=== PATIENT | female | born 1950 | race Caucasian/White ===

== ENCOUNTER 2017-12-31 | Inpatient (IN) | payer MEDICARE, OTHER ==
[~2017-12-31] VITALS: Ht 158.8 cm; Wt 85.7 kg
[2018-01-01] VITALS (34 sets, daily range): BP systolic 111–137; BP diastolic 64–94
[2018-01-01] MEDS ORDERED: NS IV 1000 ML 1,000 ML IV SCH (01:00)
[2018-01-01] MEDS: DILTIAZEM IV FOR DRIP 125 MG in NS (IVPB) 100 ML IV SCH ×2 (01:30→11:26)
[2018-01-01 03:33] LABS: BASOPHILS % (AUTO) 0 % (0-10); EOSINOPHILS # (AUTO) 0.2 10^3/uL (0.0-0.3); EOSINOPHILS % (AUTO) 1 % (0-10); HEMATOCRIT 41 % (35-52); HEMOGLOBIN 13.9 G/DL (11.5-16.0); LYMPHOCYTES # (AUTO) 1.2 X 10^3 (1.0-4.0); LYMPHOCYTES % (AUTO) 12 % (12-44); MEAN CORPUSCULAR HEMOGLOBIN 29 PG (25-34); MEAN CORPUSCULAR HGB CONC 34 G/DL (32-36); MEAN CORPUSCULAR VOLUME 86 FL (80-99); MEAN PLATELET VOLUME 10.3 FL (7.4-10.4); MONOCYTES # (AUTO) 0.7 X 10^3 (0.0-1.0); MONOCYTES % (AUTO) 7 % (0-12); NEUTROPHILS # (AUTO) 8.3 X 10^3 (1.8-7.8); NEUTROPHILS % (AUTO) 80 % (42-75); PLATELET COUNT 275 10^3/uL (130-400); RED BLOOD COUNT 4.79 10^6/uL (4.35-5.85); RED CELL DISTRIBUTION WIDTH 14.9 % (10.0-14.5); WHITE BLOOD COUNT 10.4 10^3/uL (4.3-11.0)
[2018-01-01 03:52] LABS: BUN/CREATININE RATIO 17; CALCIUM 8.9 MG/DL (8.5-10.1); CARBON DIOXIDE 17 MMOL/L (21-32); CHLORIDE 110 MMOL/L (98-107); CREATININE SERUM 0.78 MG/DL (0.60-1.30); GFR ESTIMATED > 60; GLUCOSE 185 MG/DL (70-105); MAGNESIUM 2.3 MG/DL (1.8-2.4); PHOSPHORUS 1.9 MG/DL (2.3-4.7); POTASSIUM 4.1 MMOL/L (3.6-5.0); SODIUM 138 MMOL/L (135-145)
[2018-01-01] MEDS ORDERED: KCL 20 MEQ TAB (K-DUR) PO SCH (06:00)
[2018-01-01] MEDS ORDERED: POTASSIUM CL 10MEQ/50ML IVPB 50 ML IV SCH (06:00)
[2018-01-01] MEDS ORDERED: MAGNESIUM 1 GM/100 ML IVPB 100 ML IV SCH (06:00)
[2018-01-01] MEDS ORDERED: FLU QUADRIvalent (5+ YOA) 2018-2019 (AFLURIA) 0.5 ML IM ONE (07:15)
[2018-01-01] MEDS ORDERED: APIXABAN 5 MG (ELIQUIS) TABLET PO SCH (10:15)
--- NOTE | 2018-01-01 12:58 | Consultation-Cardiology ---
HPI-Cardiology Cardiology Consultation: Date of Consultation 01/01/18 Date of Admission Attending Physician Ramsey Hendrix MD Admitting Physician Chepe Irwin MD Consulting Physician Flavia STERLING MD HPI: Time Seen by a Provider: 12:58 Chief Complaint: Palpitations This is a pleasant 67-year-old lady with no significant past medical history who presented with racing heart, near-syncope and palpitations to an outside ER. She was found to be in atrial fibrillation with rapid ventricular rate. She was transferred to our hospital overnight. I spoke to the ER nurse practitioner at the outside hospital and started the patient on Eliquis, Cardizem infusion, amiodarone infusion. The patient converted to sinus rhythm on amiodarone infusion. Subsequently amiodarone infusion was discontinued. 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 She denies any symptoms. She specifically denies chest pain, shortness of breath, palpitations, near- syncope, syncope. According to the patient this is her first episode. She denies diabetes, hypertension, previous cardiac history. She is not an active smoker. She denies any family history of premature CAD or heart rhythm disorders. She did have mild uterine bleeding 2 weeks ago for which she finished a course of progesterone. No further bleeding. Review of Systems-Cardiology Review of Systems Constitutional: As described under HPI; No As described under HPI, No no symptoms reported, No chills, No fever, No lightheadedness Eyes: No As described under HPI, No no symptoms reported, No blindness, No blurred vision, No contact lenses, No drainage, No decreased acuity, No foreign body sensation, No pain, No vision change Ears/Nose/Throat: No As described under HPI, No no symptoms reported, No chronic hearing loss, No ear discharge, No ear pain, No nasal drainage, No ulcerations Respiratory: No no symptoms reported; As described under HPI; No As described under HPI, No cough, No orthopnea, No shortness of breath, No SOB with excertion Cardiovascular: No no symptoms reported; As described under HPI; No As described under HPI, No chest pain, No edema; irregular heart rate; No lightheadedness; palpitations, syncope (near syncope.) Gastrointestinal: No no symptoms reported, No As described under HPI, No abdomen distended, No abdominal pain, No blood streaked bowels, No constipation , No diarrhea, No nausea, No vomiting, No stool coloration changes Genitourinary: No As described under HPI, No burning, No dysuria, No discharge , No frequency, No flank pain, No hematuria, No urgency : Yes : No Musculoskeletal: No no symptoms reported, No As describe under HPI, No back pain, No gout, No joint pain, No joint swelling, No muscle pain, No muscle stiffness, No neck pain, No other Skin: No no symptoms reported, No As described under HPI, No change in color, No change in hair/nails, No dryness, No lesions, No lumps, No rash, No other, No skin related problems, No ulcerations, No rash on exposed areas, No ulcerations on exposed areas Psychiatric/Neurological: No anxiety, No depression, No seizure, No focal weakness, No syncope Hematologic: No bleeding abnormalities HSI-Ovovrq-Ijffqh Hx Patient Social History Alcohol Use: Denies Use Recreational Drug Use: No Smoking Status: Former Smoker Type Used: Cigarettes Recent Foreign Travel: No Recent Infectious Disease Expo: No Hospitalization with Isolation: Denies Physical Abuse Screen: No Sexual Abuse: No Past Medical History PMH As described under Assessment. Family Medical History Family History: Arthritis 19 MOTHER, Onset:Unknown Cataracts 19 MOTHER, Onset:Unknown FH: Crohn's disease G8 BROTHER, Onset:Unknown FH: atrial fibrillation 19 FATHER, , Age:81, Onset:Unknown FH: blindness G8 BROTHER, Onset:60 years & older FH: colonic polyps G8 BROTHER, Onset:Unknown FH: coronary artery disease 19 MOTHER, Onset:Unknown FH: emphysema 19 FATHER, , Age:81, Onset:Unknown FH: scoliosis 19 MOTHER, Onset:Unknown Glaucoma G8 BROTHER, Onset:Unknown Hypertension G8 BROTHER, Onset:Unknown Allergies and Home Medications Allergies Coded Allergies: No Known Drug Allergies (Unverified , 01/01/18) Patient Home Medication List Home Medication List Reviewed: Yes Physical Exam-Cardiology Physical Exam Vital Signs/I&O 01/01/18 01/01/18 01/01/18 01/01/18 02:00 02:15 02:30 02:45 Temp 98.0 Pulse 87 82 87 83 Resp 12 12 11 15 B/P (MAP) 137/86 (103) 133/81 (98) 126/74 (91) 133/77 (95) Pulse Ox 96 97 96 94 O2 Delivery Room Air Room Air Room Air Room Air 01/01/18 01/01/18 01/01/18 01/01/18 03:00 03:15 03:30 03:45 Pulse 76 81 80 80 Resp 12 13 12 11 B/P (MAP) 130/70 (90) 122/69 (86) 127/72 (90) 122/70 (87) Pulse Ox 94 92 92 94 O2 Delivery Room Air Room Air Room Air Room Air 01/01/18 01/01/18 01/01/18 01/01/18 04:00 04:05 04:15 04:30 Pulse 81 82 75 Resp 13 11 11 B/P (MAP) 117/70 (86) 120/70 (87) 120/72 (88) Pulse Ox 91 96 96 96 O2 Delivery Room Air Room Air Room Air Room Air 01/01/18 01/01/18 01/01/18 01/01/18 04:45 05:00 05:15 05:30 Pulse 82 86 92 75 Resp 13 9 16 11 B/P (MAP) 121/73 (89) 121/78 (92) 114/70 (85) 117/72 (87) Pulse Ox 94 94 95 96 O2 Delivery Room Air Room Air Room Air Room Air 01/01/18 01/01/18 01/01/18 01/01/18 05:45 06:00 06:15 06:30 Pulse 73 75 77 82 Resp 12 12 13 13 B/P (MAP) 115/69 (84) 114/67 (83) 114/70 (85) 119/76 (90) Pulse Ox 94 92 93 95 O2 Delivery Room Air Room Air Room Air Room Air 01/01/18 01/01/18 01/01/18 01/01/18 06:45 07:00 07:00 08:00 Pulse 77 74 73 75 Resp 11 10 15 B/P (MAP) 115/69 (84) 120/68 (85) 111/69 (83) Pulse Ox 95 94 95 O2 Delivery Room Air Room Air Room Air 01/01/18 01/01/18 01/01/18 01/01/18 08:00 08:00 09:00 10:00 Temp 97.0 Pulse 78 69 Resp 15 11 B/P (MAP) 115/68 (84) 117/64 (81) Pulse Ox 95 93 96 O2 Delivery Room Air Room Air Room Air 01/01/18 01/01/18 01/01/18 01/01/18 11:00 11:26 12:00 12:00 Temp 97.8 98.1 Pulse 71 73 Resp 17 19 B/P (MAP) 126/69 (88) 125/68 Pulse Ox 96 96 95 O2 Delivery Room Air Room Air Room Air 01/01/18 01/01/18 12:00 13:00 Pulse 75 75 Resp 26 B/P (MAP) 125/72 (89) Pulse Ox 96 O2 Delivery Room Air Capillary Refill : Less Than 3 Seconds Constitutional: appears stated age, AAO x 3; No apparent distress; well- developed, well-nourished HEENT: PERRL; No normal ENT inspection, No TMs normal, No pharynx normal, No scleral icterus (R), No scleral icterus (L), No pale conjunctivae (R), No pale conjunctivae (L), No photophobia, No TM abnormal (R), No TM abnormal (L), No pharyngeal erythema, No tonsillar exudate, No other, No discharge, No EOMI; hearing is well preserved; No hard of hearing; oral hygience is good; No ulceration, No xanthelasmas are seen Neck: No non-tender, No full range of motion, No supple, No normal inspection, No carotid bruit, No limited range of motion, No lymphadenopathy (R), No lymphadenopathy (L), No tender lateral, No tender midline, No thyromegaly, No other; carotid pulses are 2 + bilaterally; No with good upstrokes Respiratory: No accessory muscle use, No respiratory distress, No chest tender , No chest expansion is symmetric; chest is bilaterally symmetric, lungs clear to percussion; No lungs clear to auscultation, No crackles, No rhonchi, No rales , No stridor, No wheezing, No pleural rub, No other Cardiovascular: regular rate-rhythm; No irregularly irregular, No extra beats, No parasternal heave is noted, No JVD, No edema, No bradycardia, No tachycardia , No point of maximal impulse, No cardiac thrills are palpable; S1 and S2; No gallop/S3, No gallop/S4, No diastolic murmur, No systolic murmur, No friction rub, No click, No other Gastrointestinal: No tender, No soft, No round, No distended, No pulsatile mass , No organomegaly, No guarding, No rebound, No tenderness, No hernia, No mass, No audible bowel sounds, No abnormal bowel sounds, No abdominal bruits, No spleenomegaly, No other Rectal: deferred Extremities: No normal range of motion, No non-tender, No normal inspection, No pedal edema, No calf tenderness, No normal capillary refill, No pelvis stable , No calf tenderness, No inflammation, No pedal edema, No slow capillary refill , No swelling, No other, No abrasion, No clubbing, No cyanosis, No ecchymosis, No laceration, No no lower extremity edema bilateral, No significant edema, No tenderness, No wound Neurologic/Psychiatric: no motor/sensory deficits, alert, normal mood/affect, oriented x 3, power is 5/5 both on sides Skin: No normal color, No warm/dry, No cyanosis, No cool, No diaphoresis, No damp, No ecchymosis, No jaundice, No mottled, No pallor, No rash, No tattoos/ piercings, No ulcerations, No rash on exposed areas, No ulcerations on exposed areas, No other Data Review Labs Laboratory Tests 01/01/18 02:15: White Blood Count 10.4, Red Blood Count 4.79, Hemoglobin 13.9, Hematocrit 41, Mean Corpuscular Volume 86, Mean Corpuscular Hemoglobin 29, Mean Corpuscular Hemoglobin Concent 34, Red Cell Distribution Width 14.9H, Platelet Count 275, Mean Platelet Volume 10.3, Neutrophils (%) (Auto) 80H, Lymphocytes (%) (Auto) 12 , Monocytes (%) (Auto) 7, Eosinophils (%) (Auto) 1, Basophils (%) (Auto) 0, Neutrophils # (Auto) 8.3H, Lymphocytes # (Auto) 1.2, Monocytes # (Auto) 0.7, Eosinophils # (Auto) 0.2, Basophils # (Auto) 0.0, Sodium Level 138, Potassium Level 4.1, Chloride Level 110H, Carbon Dioxide Level 17L, Anion Gap 11, Blood Urea Nitrogen 13, Creatinine 0.78, Estimat Glomerular Filtration Rate > 60, BUN/ Creatinine Ratio 17, Glucose Level 185H, Calcium Level 8.9, Phosphorus Level 1.9L, Magnesium Level 2.3 ECG Impression ECG Initial ECG Impression: Atrial Fibrillation w/RVR A/P-Cardiology Assessment/Admission Diagnosis Atrial fibrillation with rapid ventricular rate, Previous history of Uterine bleeding Plan First episode of atrial fibrillation. I discussed at length with the patient and family the pathophysiology of atrial fibrillation, rate controlled, rhythm control, stroke prevention, diagnostic modalities and future plan. Brief wide complex beats, likely atrial fibrillation with aberrancy. Echocardiogram shows normal LVEF. Metoprolol succinate 50 mg daily. Discontinue Cardizem infusion in a couple of hours. Start Eliquis 5 mg twice a day. Risk of bleeding discussed at length with the patient. Patient's CHADSVASC score is at least 2 for age and female gender. We'll schedule for outpatient sleep apnea testing and stress testing as an outpatient. I will follow-up in one to 2 weeks. Thank you for your consultation. Please call me if you have any questions. Kelvin Sterling MD, FACP, FACC, FSCAI, FHRS, CCDS Interventional Cardiology Cardiac Electrophysiology Vascular Medicine and Endovascular Interventions Clinical Quality Measures DVT/VTE Risk/Contraindication: Risk Factor Score Per Nursin RFS Level Per Nursing on Admit: 3=High Flavia STERLING MD Jan 01, 2018 12:58 pm
[2018-01-01] MEDS ORDERED: meTOproloL SUCCINATE 50 MG (TOPROL XL) TAB PO SCH (13:45)
--- NOTE | 2018-01-01 13:49 | History & Physical-Hospitalist ---
History of Present Illness HPI/Chief Complaint The patient is a 67-year-old white female who was referred to the hospitalist panel last night from the [place] emergency room. She had presented there with complaints of left-sided chest pain and palpitations. There was no previous history of heart disease or arrhythmias. Monitor strips showed atrial fibrillation with rapid ventricular response. She was okayed for transfer here. Indeed she was in atrial fibrillation with rapid ventricular response. Medications were managed by Dr. Sterling and she converted back to a sinus rhythm. An echocardiogram has been performed which showed normal pumping function and no evidence of valvular disease. He has therefore planned to discontinue her Cardizem drip and give an initial dose of metoprolol. The hope would be for discharge later this afternoon. Date Seen 01/01/18 Time Seen by a Provider: 13:44 Attending Physician Ramsey Irving MD PCP Chepe Irwin MD Referring Physician Date of Admission Jan 01, 2018 at 01:19 Home Medications & Allergies Home Medications Reviewed patient Home Medication Reconciliation performed by pharmacy medication reconciliations instrument technician helper and/or nursing. Patients Allergies have been reviewed. Allergies Allergies Coded Allergies No Known Drug Allergies (Vgaumtrlki80/7/18) Past Khctmnc-Unginc-Uoczpf Hx Past Med/Social Hx: Reviewed Nursing Past Med/Soc Hx Patient Social History Marrital Status: Alcohol Use: Denies Use Recreational Drug Use: No Smoking Status: Former Smoker Former Smoker, Quit: Sep 02, 1979 Type Used: Cigarettes Physical Abuse Screen: No Sexual Abuse: No Recent Foreign Travel: No Contact w/other who traveled: No Recent Hopitalizations: No Recent Infectious Disease Expo: No Immunizations Up To Date Pediatric: No Seasonal Allergies Seasonal Allergies: Yes Past Medical History Currently Using CPAP: No Currently Using BIPAP: No : No Genitourinary: UTI-Chronic HEENT: Glaucoma Loss of Vision: Denies Hearing Impairment: Denies Cancer: Skin History of Blood Disorders: No Adverse Reaction to Blood Yepez: No Family History Arthritis 19 MOTHER, Onset:Unknown Cataracts 19 MOTHER, Onset:Unknown FH: Crohn's disease G8 BROTHER, Onset:Unknown FH: atrial fibrillation 19 FATHER, , Age:81, Onset:Unknown FH: blindness G8 BROTHER, Onset:60 years & older FH: colonic polyps G8 BROTHER, Onset:Unknown FH: coronary artery disease 19 MOTHER, Onset:Unknown FH: emphysema 19 FATHER, , Age:81, Onset:Unknown FH: scoliosis 19 MOTHER, Onset:Unknown Glaucoma G8 BROTHER, Onset:Unknown Hypertension G8 BROTHER, Onset:Unknown Review of Systems Constitutional: see HPI EENTM: no symptoms reported Respiratory: no symptoms reported Cardiovascular: see HPI, chest pain, palpitations Gastrointestinal: no symptoms reported Genitourinary: no symptoms reported Musculoskeletal: no symptoms reported Skin: no symptoms reported Psychiatric/Neurological: No Symptoms Reported Physical Exam Physical Exam Vital Signs Vital Signs - First Documented 01/01/18 01/01/18 01:23 02:00 Temp 98.0 Pulse 96 Resp 33 B/P (MAP) 133/89 (104) Pulse Ox 96 O2 Delivery Room Air Capillary Refill : Less Than 3 Seconds Height, Weight, BMI Height: 5'2.50" Weight: 189lbs. 0.0oz. 85.454305cf; 34.0 BMI Method: General Appearance: No Apparent Distress, WD/WN, Other (considerable family in attendance) Eyes: Bilateral Eye Normal Inspection HEENT: Normal ENT Inspection Neck: Full Range of Motion, Normal Inspection, Non Tender, Supple, Carotid Bruit Respiratory: Chest Non Tender, Lungs Clear, Normal Breath Sounds, No Accessory Muscle Use, No Respiratory Distress Cardiovascular: Regular Rate, Rhythm, No Edema, No Gallop, No JVD, No Murmur, Normal Peripheral Pulses Gastrointestinal: Normal Bowel Sounds, No Organomegaly, No Pulsatile Mass, Non Tender, Soft Back: Normal Inspection, No CVA Tenderness, No Vertebral Tenderness Extremity: Normal Capillary Refill, Normal Inspection, Normal Range of Motion, Non Tender, No Calf Tenderness, No Pedal Edema Neurologic/Psychiatric: Alert, Oriented x3, No Motor/Sensory Deficits, Normal Mood/Affect Skin: Normal Color, Warm/Dry Lymphatic: No Adenopathy Results Results/Procedures Labs Laboratory Tests 01/01/18 02:15 Patient resulted labs reviewed. Assessment/Plan Admission Diagnosis Atrial fibrillation with rapid ventricular response now converted to sinus rhythm. Admission Status: Observation Clinical Quality Measures DVT/VTE Risk/Contraindication: Risk Factor Score Per Nursin RFS Level Per Nursing on Admit: 3=High RAMSEY IRVING MD Jan 01, 2018 13:49
[2018-01-01] MEDS ORDERED: METO-370 PO (17:37)
[2018-01-01] MEDS ORDERED: APIX5TAB PO (17:37)
[2018-01-02] MEDS ORDERED: meTOproloL SUCCINATE 50 MG (TOPROL XL) TAB PO SCH (09:00)
--- NOTE | 2018-01-03 15:47 | Physician Query-Final Dx ---
Final Diagnosis Give Final Diagnosis Please give Final Diagnosis ASIA JAMES Jan 03, 2018 15:47
== END 2018-01-01 18:45 | disposition home or self-care (01) | DRG 310 ==
LOC: ICU 01-01 01:19 → EDBD 01-01 01:19
PROVIDERS: ADMIT Internal Medicine; ATTEND Internal Medicine
DX: I48.0 Paroxysmal atrial fibrillation (principal); Z79.01 Long term (current) use of anticoagulants; Z87.891 Personal history of nicotine dependence
CPT/HCPCS: 36415; 80048; 83735; 84100; 85025; 87081; 93005; 93306

== ENCOUNTER → 2018-01-16 | Outpatient (CLI) | payer MEDICARE, OTHER ==
[~2018-01-16] MED LIST: APIX5TAB PO; METO-370 PO
== END ==
LOC: CARD 07:56
PROVIDERS: ATTEND Internal Medicine Interventional Cardiology
DX: I48.0 Paroxysmal atrial fibrillation (principal)
CPT/HCPCS: 93225; 93226

== ENCOUNTER 2018-02-02 19:28 | Outpatient (CLI) | payer MEDICARE, OTHER | END 2018-02-03 06:20 | disposition home or self-care (01) | LOC: SLEEP 19:28 | PROVIDERS: ATTEND Internal Medicine Interventional Cardiology | DX: G47.10 Hypersomnia, unspecified (principal); R06.83 Snoring; I48.91 Unspecified atrial fibrillation; E66.9 Obesity, unspecified; Z68.34 Body mass index [BMI] 34.0-34.9, adult | CPT/HCPCS: 95810 ==

== ENCOUNTER 2018-03-06 09:30 | Outpatient (RCR) | payer MEDICARE, OTHER | END 2018-05-11 | disposition home or self-care (01) | LOC: CARD 09:30 | PROVIDERS: ATTEND Internal Medicine Interventional Cardiology | DX: I48.0 Paroxysmal atrial fibrillation (principal) | CPT/HCPCS: 93270 ==

== ENCOUNTER → 2018-10-12 | Outpatient (CLI) | payer MEDICARE ==
[~2018-10-12] VITALS: Ht 157.5 cm; Wt 83.9 kg
[~2018-10-12] MED LIST changes: +CATHETER FLUSH 10 ML SYR IV PRN; +REGADENOSON 0.4 MG/5 ML SYR (LEXISCAN) IV ONE
[2018-10-12 08:39] VITALS: BP 129/75
[2018-10-12 08:43] VITALS: BP 139/82
--- NOTE | 2018-10-16 12:36 | Cardiology Stress Test Report ---
Stress Test Report Type of NM Stress Test: Test Type: LEXISCAN 0.4MG/5ML Date of Procedure/Referring: Date of Procedure: Oct 12, 2018 PCP Flavia Sterling MD Admitting Physician Chepe Irwin MD Indications: Paroxysmal atrial fibrillation Baseline Heart Rate: 65 Baseline Blood Pressure: Blood Pressure Systolic: 139 Blood Pressure Diastolic: 82 Baseline EKG: Baseline EKG: sinus rhythm Summary & Conclusion: Summary: The patient was brought to the stress lab after informed consent was taken. Stress test was performed according to the Lexiscan protocol. 0.4 mg of IV Lexiscan was given. Low-grade exercise was performed. Baseline EKG showed sinus rhythm at 65 BPM. Initial blood pressure was 159/75 mmHg. Maximum heart rate was 88 bpm and blood pressure 134/65 mmHg. Patient did not have any chest pain, arrhythmias or ST segment changes during the stress test. 10.95 mCi of Myoview were given for rest imaging and 30.8 mCi of Myoview given for stress imaging. Transient ischemic dilatation score 1.01, EF 69 percent. Normal wall motion. Moderate anterior septal reversible defect. Conclusion: Pharmacological stress test was negative for ischemia. Normal LV function with no wall motion abnormalities. Possible anterior septal ischemia. Clinical correlation is recommended. Flavia STERLING MD Oct 16, 2018 12:36 pm
== END ==
LOC: CARD 07:04
PROVIDERS: ATTEND Internal Medicine Interventional Cardiology
DX: I48.0 Paroxysmal atrial fibrillation (principal)
CPT/HCPCS: 78452; 93017

== ENCOUNTER 2018-12-28 06:48 | Day surgery (SDC) | payer MEDICARE ==
[2018-12-28] VITALS (10 sets, daily range): BP systolic 133–147; BP diastolic 56–75
[~2018-12-28] VITALS: Ht 160 cm; Wt 84.0 kg
[~2018-12-28 06:48] MED LIST changes: -CATHETER FLUSH 10 ML SYR IV PRN; -REGADENOSON 0.4 MG/5 ML SYR (LEXISCAN) IV ONE
[2018-12-28] MEDS ORDERED: LIDOCAINE 1% INJ 20 ML 20 ML VIAL ONE (06:52)
[2018-12-28] MEDS ORDERED: HEParin (CATH LAB) 2,000 ML IV ONE (06:52)
[2018-12-28] MEDS ORDERED: NS IV 1000 ML 1,000 ML ONE (06:52)
[2018-12-28] MEDS ORDERED: NS IV 1000 ML 1,000 ML IV SCH (07:00)
[2018-12-28] MEDS ORDERED: APIX5TAB PO (07:24)
[2018-12-28] MEDS ORDERED: METO-370 PO (07:24)
[2018-12-28 07:25] LABS: HEMOGLOBIN 14.2 G/DL (11.5-16.0); MEAN PLATELET VOLUME 10.3 FL (7.4-10.4); RED CELL DISTRIBUTION WIDTH 14.2 % (10.0-14.5); WHITE BLOOD COUNT 6.9 10^3/uL (4.3-11.0)
[2018-12-28] MEDS ORDERED: ASCO1TAB36 PO (07:29)
[2018-12-28] MEDS ORDERED: CRAN400T3 PO (07:29)
[2018-12-28] MEDS ORDERED: B1/B1TAB5 PO (07:29)
[2018-12-28] MEDS ORDERED: FLAX10002 PO (07:29)
[2018-12-28] MEDS ORDERED: LATA2.5D5 OU (07:29)
[2018-12-28] MEDS ORDERED: OMEG10005 PO (07:29)
[2018-12-28] MEDS ORDERED: MV-M1TAB38 PO (07:29)
[2018-12-28 07:32] LABS: PROTHROMBIN TIME PATIENT 13.7 SEC (12.2-14.7)
[2018-12-28] MEDS ORDERED: GARLIQUE PO (07:33)
[2018-12-28] MEDS ORDERED: CARB15DR58 OU (07:33)
[2018-12-28] MEDS ORDERED: ACET325T49 PO (07:33)
[2018-12-28 07:40] LABS: ALANINE AMINOTRANSFERASE 24 U/L (0-55); ALBUMIN 3.9 GM/DL (3.2-4.5); ALKALINE PHOSPHATASE 64 U/L (40-136); BILIRUBIN,TOTAL 0.7 MG/DL (0.1-1.0); BUN/CREATININE RATIO 14; CARBON DIOXIDE 28 MMOL/L (21-32); CHLORIDE 106 MMOL/L (98-107); CREATININE SERUM 0.76 MG/DL (0.60-1.30); GFR ESTIMATED > 60; GLUCOSE 124 MG/DL (70-105); POTASSIUM 3.9 MMOL/L (3.6-5.0); SODIUM 142 MMOL/L (135-145); TOTAL PROTEIN 6.8 GM/DL (6.4-8.2)
--- NOTE | 2018-12-28 08:25 | NUR ---
SPOKE WITH PT (SHE HAD A MED LIST WITH HER) WELL CALLING JEEVAN TO COMPLETE THE MED REC. PT WAS ABLE TO TELL ME ALL HER HOME MEDS INCLUDING HOW SHE TAKES EACH ONE. JEEVAN VERIFIED THE FOLLOWING FILL DATES: 11-23-2018 METOPROLOL #30/30DS 12-10-2018 ELIQUIS #60/30DS THERE IS NO RECORD ON FILE FOR DILLIONS FROM THE LATANOPROST. OTC MEDS: GARLIQUE: 1 DAILY ACETAMINOPHEN 325M TABS Q 6 H PRN ALICE C: 2 TABS DAILY VIT B COMPLEX: 1 DAILY THERA TEARS: 1 DROP OU D PRN CRANBERRY: 1 HS FLAXSEED OIL: 1 DAILY OCUVITE: 1 HS OMEGA 3: 1 DAILY
[2018-12-28] MEDS ORDERED: NITRO DRIP 25000 MCG/D5W 250 ML IV ONE (09:11)
[2018-12-28] MEDS ORDERED: MIDAZOLAM 5 MG/5 ML (VERSED) VIAL ONE (09:11)
[2018-12-28] MEDS ORDERED: VERAPAMIL 5 MG/2 ML (CALAN) VIAL IV ONE (09:11)
[2018-12-28] MEDS ORDERED: fentaNYL INJECTION 100 MCG/2 ML AMP ONE (09:11)
[2018-12-28] MEDS ORDERED: HEParin 1000 UNIT/ML (10ML VIAL) FOR BOLUS ONE (09:24)
--- NOTE | 2018-12-28 10:16 | Cardiac Procedure Note-CS/ASA ---
Pre-Procedure Note Pre-Op Procedure Note H&P Reviewed The H&P was reviewed, patient examined and no changes noted. Date H&P Reviewed: Dec 28, 2018 Time H&P Reviewed: 09:00 Conscious Sedation Pre-Proced Time 09:00 ASA Score 3 For ASA 3 and 4: Consider anesthesia and medical clearance. Also, for patients with a history of failed moderate sedation consider anesthesia. Airway Lungs Heart ASA score ASA 1: a normal healthy patient ASA 2: a patient with a mild systemic disease (mid diabetes, controlled hypertension, obesity ASA 3: a patient with a severe systemic disease that limits activity (angina, COPD, prior Myocardial infarction) ASA 4: a patient with an incapacitating disease that is a constant threat to life (CHF, renal failure) ASA 5: a moribund patient not expected to survive 24 hrs. (ruptured aneurysm) ASA 6: a declared brain- patient whose organs are being harvested. For emergent operations, add the letter E after the classification Mallampati Classification Grade 1 Sedation Plan Analgesia, Amnesia, Plan communicated to team members, Discussed options with patient/fam, Discussed risks with patient/fam The patient is an appropriate candidate to undergo the planned procedure, sedation, and anesthesia. The patient immediately re-assessed prior to indication. Flavia HARRISON MD Dec 28, 2018 10:16 am
--- NOTE | 2018-12-28 10:16 | Coronary Angiography Report ---
Coronary Angiography Report DATE OF PROCEDURE: 12/28/18 INDICATION: Paroxysmal atrial fibrillation, abnormal nuclear stress test. PREOPERATIVE DIAGNOSIS: Paroxysmal atrial fibrillation, abnormal nuclear stress test. POSTOPERATIVE DIAGNOSIS: Patent epicardial coronary arteries. HISTORY: This is a 68-year-old lady with history of paroxysmal atrial fibrillation. Will like to start the patient on class 1C antiarrhythmics therefore nuclear stress test was done to rule out ischemic heart disease. Nuclear stress test showed possible anterior septal reversible defect. Therefore, the patient was scheduled for coronary angiography. PROCEDURES PERFORMED: 1.Coronary angiography. 2.Left heart catheterization. COMPLICATIONS: None. SPECIMENS: None. ESTIMATED BLOOD LOSS: 10 mL ANESTHESIA: Conscious sedation ANTICOAGULATION: IV heparin CONTRAST: 35 mL. FLUOROSCOPY: 2.5 minutes. FLOUROSCOPY DOSE: 410 mgy. PROCEDURE DETAILS: The patient is a 68 female and was brought to the dental laboratory worker after informed consent was taken. All the risks and complications were explained in detail; this included the risk of bleeding, vascular damage, stroke, UT and even . The patient was draped and prepped in the usual sterile fashion. Access was gained in the right radial artery with a 6 [place] sheath. Coronary angiography and left heart catheterization was performed with the Harmon catheter. FINDINGS: 1.Left main: Patent. 2.LAD: Patent. 3.Left circumflex artery: Patent. 4.RCA: Patent. 5.Left heart catheterization: LV pressure 117/3 mmHg. LVEDP 12 mmHg. Aortic pressure 115/63 mmHg. No gradient across the aortic valve. Normal LV function with no wall motion abnormalities. CONCLUSIONS: Patent epicardial coronary arteries. Normal LV function with normal LVEDP. Continue primary prevention measures. Kelvin Sterling MD, FACP, FACC, [facility] Interventional Cardiology Flavia STERLING MD Dec 28, 2018 10:16 am
--- NOTE | 2018-12-28 10:26 | Cardiology Discharge Summary ---
Diagnosis/Chief Complaint Date of Admission 12/28/2018 Date of Discharge 12/28/2018 Admission Diagnosis Paroxysmal atrial fibrillation, abnormal nuclear stress test. Final/Discharge Diagnosis Patent epicardial coronary arteries. Chief Complaint/HPI Chief Complaint/HPI This is a 68-year-old lady with history of paroxysmal atrial fibrillation. Will like to start the patient on class 1C antiarrhythmics therefore nuclear stress test was done to rule out ischemic heart disease. Nuclear stress test showed possible anterior septal reversible defect. Therefore, the patient was scheduled for coronary angiography. Discharge Summary Procedures Coronary angiography showed patent epicardial coronary arteries. Discharge Physical Examination Unremarkable. Hospital Course Was the Problem List Reviewed?: Yes Stable. Pending Labs Laboratory Tests 12/28/18 07:14: White Blood Count 6.9, Red Blood Count 4.82, Hemoglobin 14.2, Hematocrit 43, Mean Corpuscular Volume 89, Mean Corpuscular Hemoglobin 30, Mean Corpuscular Hemoglobin Concent 33, Red Cell Distribution Width 14.2, Platelet Count 205, Mean Platelet Volume 10.3, Prothrombin Time 13.7, INR Comment 1.0, Activated Partial Thromboplast Time 31, Sodium Level 142, Potassium Level 3.9, Chloride Level 106, Carbon Dioxide Level 28, Anion Gap 8, Blood Urea Nitrogen 11, Creatinine 0.76, Estimat Glomerular Filtration Rate > 60, BUN/Creatinine Ratio 14, Glucose Level 124, Calcium Level 9.0, Corrected Calcium 9.1, Total Bilirubin 0.7, Aspartate Amino Transf (AST/SGOT) 25, Alanine Aminotransferase (ALT/SGPT) 24, Alkaline Phosphatase 64, Total Protein 6.8, Albumin 3.9 Discussion & Recommendations Discussion Discharge instructions discussed with the patient and family. Patient will continue rest of the medications as previously advised. Follow up appt.: Follow-up on previously scheduled appointment. Dicharge Diet: No Restrictions Activity as Tolerated: Yes Home Medications Reviewed patient Home Medication Reconciliation performed by pharmacy medication reconciliations environmental compliance technician and/or nursing. Patients Allergies have been reviewed. Discharge Home Medications: Reviewed and agree with Discharge Medication list on patient's Discharge Instruction sheet Condition at discharge Stable. Instructions to patient/family Discussed with the patient and family. Flavia HARRISON MD Dec 28, 2018 10:26 am
--- NOTE | 2018-12-28 10:27 | Discharge Inst-Post CATH ---
Discharge Inst-CATH/EP Problems Reviewed?: Yes Final Diagnosis Patent epicardial coronary arteries. Paroxysmal atrial fibrillation. Post Cardiac Cath/EP D/C Inst Follow Up/Plan Discussed with the patient and family. <b>CARDIAC CATH/EP PROCEDURE DISCHARGE INSTRUCTIONS</b> ACTIVITY * Go Home directly and rest. * Limit activity of the leg (or wrist if it was used) for 7 days including aerobics, swimming, jogging, bicycling, etc. * Restrict stair-climbing for 7 days if possible, if not, climb up with your non-cath leg, then bring together on the same step. * Avoid lifting, pushing, pulling or excessive movement of the affected extremity for 7 days. * Customary sexual activity may be resumed after 2 days-use caution not to use a position that strains or causes pain to the affected extremity. * No driving for 24 hours. * NO SMOKING. * Avoid straining for bowel movements for 7 days. * Gentle walking on level ground is allowed. * Returning to work will depend on the type of procedure and the results. Your doctor will discuss this with you. CALL YOUR DOCTOR FOR ANY OF THE FOLLOWING: *If bleeding from the puncture site occurs- Apply gentle pressure to site with clean cloth and call your doctor or EMS. * If a knot or lump forms under the skin, increases in size, or causes pain. * If bruising appears to be worsening or moving further down your leg instead of disappearing. * Temperature above 101 F. CARE OF YOUR GROIN INCISION; * Bruising or purple discoloration of the skin near the puncture site is common. * You may shower only, no bathtub bathing for 5 days. Be careful to avoid slipping as your leg may feel stiff. * If a closure device was used on your femoral artery, please see the attached guide regarding care of the device and your leg. * Leave dressing on FOR 24 hours. CARE OF YOUR WRIST INCISION; * Bruising or purple discoloration of the skin near the puncture site is common. * You may shower. * DO NOT submerge wrist. * Leave dressing on FOR 24 hours. Flavia HARRISON MD Dec 28, 2018 10:27 am
== END 2018-12-28 14:10 | disposition home or self-care (01) ==
LOC: CATH 06:48 → SDC 10:25 → CATH 14:10
PROVIDERS: ATTEND Internal Medicine Interventional Cardiology
DX: I25.10 Atherosclerotic heart disease of native coronary artery without angina pectoris (principal); I48.0 Paroxysmal atrial fibrillation; Z79.01 Long term (current) use of anticoagulants; Z82.49 Family history of ischemic heart disease and other diseases of the circulatory system
CPT/HCPCS: 36415; 80053; 85027; 85610; 85730; 87081; 93458

== ENCOUNTER → 2019-03-15 | Day surgery (SDC) | payer MEDICARE ==
[~2019-03-15] VITALS: Ht 160 cm; Wt 81.2 kg
[~2019-03-15] MED LIST changes: +ACET325T49 PO; +ASCO1TAB36 PO; +B1/B1TAB5 PO; +CARB15DR58 OU; +CRAN400T3 PO; +FLAX10002 PO; +GARLIQUE PO; +LATA2.5D5 OU; +LIDOCAINE 1% INJ 20 ML 20 ML VIAL ONE; +MV-M1TAB38 PO; +OMEG10005 PO
[2019-03-15 10:11] VITALS: BP 130/80
--- NOTE | 2019-03-15 11:41 | Implantation of Loop Monitor ---
Implant of Loop Monitior PROCEDURE PHYSICIAN: Kelvin Sterling MD IMPLANTATION OF LOOP MONITOR REPORT DATE OF PROCEDURE: 03/15/19 PERFORMING PHYSICIAN: Dr. Chris Sterling. INDICATION: Long-term surveillance of atrial fibrillation PREOP DIAGNOSIS: Long-term surveillance of atrial fibrillation POSTOP DIAGNOSIS: Paroxysmal Atrial fibrillation, s/p implantation of loop recorder. PROCEDURE DETAILS: The patient is a 68 female with history of paroxysmal atrial fibrillation requiring long-term surveillance. Therefore implantable loop recorder was discussed and agreed with the patient. Informed consent was taken. All risks and complications were discussed at length. The patient was draped and prepped in the usual sterile fashion. Local anesthesia was lidocaine, which was given in the substernal area close to the 4th intercostal space. Loop monitor was implanted according to the protocol. Steri-Strips were placed at the end of the procedure. There were no complications and the patient tolerated the procedure well. ANESTHESIA: Local anesthesia with lidocaine. COMPLICATIONS: None CONTRAST/FLUOROSCOPY: None CONCLUSION: 1. Successful implantation of loop monitor for long-term surveillance of atrial fibrillation. 2. No complication and the patient tolerated the procedure well. Kelvin Sterling MD, [facility] Cardiac Electrophysiology Flavia STERLING MD Mar 15, 2019 11:41
== END ==
LOC: CATH 09:43
PROVIDERS: ATTEND Internal Medicine Interventional Cardiology
DX: I48.0 Paroxysmal atrial fibrillation (principal); Z79.01 Long term (current) use of anticoagulants; Z79.899 Other long term (current) drug therapy; Z87.891 Personal history of nicotine dependence; R06.83 Snoring
CPT/HCPCS: 33285